=== PATIENT | male | born 1975 | race Caucasian/White ===

== ENCOUNTER 2018-01-28 22:26 | Emergency (ER) | payer OTHER ==
[2015-02-17 05:55] VITALS: BMI 36.5
[~2018-01-28 22:26] MED LIST: HYDROCODONE-APA1 TAB PO
[2018-01-28 22:43] LABS: APPEARANCE CLEAR (CLEAR); BILIRUBIN NEGATIVE (NEGATIVE); COLOR YELLOW (YELLOW); GLUCOSE NEGATIVE (NEGATIVE); KETONE NEGATIVE (NEGATIVE); NITRITE NEGATIVE (NEGATIVE); PROTEIN NEGATIVE (NEGATIVE); SPECIFIC GRAVITY 1.015 (1.005-1.020); UROBILINOGEN NORMAL (NORMAL)
[2018-01-29] MEDS ORDERED: FLAGYL500 MG PO (15:55)
[2018-01-29] MEDS ORDERED: CIPRO500 MG PO (15:55)
[2018-01-29] MEDS ORDERED: HYDROCODONE-APA1 TAB PO (15:55)
== END 2018-01-29 00:52 | disposition home or self-care (01) ==
LOC: D.ER 22:26
PROVIDERS: Family Medicine
DX: N20.1 Calculus of ureter (principal); N23 Unspecified renal colic; K57.92 Diverticulitis of intestine, part unspecified, without perforation or abscess without bleeding; F17.200 Nicotine dependence, unspecified, uncomplicated

== ENCOUNTER 2018-01-29 15:07 | Day surgery (SDC) | payer OTHER ==
[~2018-01-29] VITALS: Ht 170.2 cm; Wt 113.9 kg
--- NOTE | ~2018-01-29 | OP ---
PATIENT NAME: CHER MARQUIS MEDICAL RECORD: [id number] :77 LOCATION:[facility] ADMISSION DATE: SURGEON: ISHMAEL HAAS MD DATE OF OPERATION: 01/29/2018 SURGEON: Ishmael Haas MD ANESTHESIA: General anesthesia by Rony Moon CRNA PREOPERATIVE DIAGNOSIS: Left distal ureteral 7 mm stone. PROCEDURES: Cystoscopy, left retrograde pyelogram, left ureteroscopy and stone extraction, left ureteral stent insertion 6-Malian x 26 cm with string attached. FINDINGS: Radiodense left UVJ stone. Single ureteral orifices bilaterally. No bladder tumors. SPECIMENS: Left ureteral stone. ESTIMATED BLOOD LOSS: None. CLINICAL HISTORY: This is a 42-year-old male with a previous history of kidney stones. He was referred by the Emergency Room with left flank pain for the past 2 weeks. It became more intense last night and that is when he went to the Emergency Room. A CT scan shows bilateral punctate nonobstructive renal stones. There is left ureteral obstruction due to a 7 mm stone lodged in the left distal ureter. It is at the UV junction level. He was having such acute flank pain in my office with nausea and vomiting that I had him put on the add-on list today for surgery. HE IS ALLERGIC TO PENICILLIN and he was given Levaquin 500 mg IV continuity coordinator to the OR. DESCRIPTION OF PROCEDURE: The patient was given induction of general anesthesia. He was then placed into dorsal lithotomy position and prepped and draped. A 21-Malian cystoscope with 30-degree lens was used for visualization. The penile urethra was normal. Prostatic urethra is nonobstructive. Going into the bladder, single ureteral orifices were seen. The left ureteral orifice was inflamed from the presence of the stone. No bladder tumors were seen. On fluoroscopy, several radiodensities were seen in the pelvis. In order to determine which one was the stone, we performed a left retrograde pyelogram. The left ureteral orifice was intubated using a 5-Malian open-ended ureteral catheter. We then used diluted contrast for the retrograde pyelogram. This outlined the radiodensity of the ureteral stone. We then passed a Sensor wire past the stone up to the renal pelvis. The open-ended ureteral catheter was then removed, leaving the wire in place. Over the wire, inserted an 18-Malian x 4 cm ureteral dilation balloon. We dilated the ureteral orifice with only 5 atmospheres of pressure. I did not want to use excessive pressure in order to prevent forcing the stone through the ureteral wall. The pressure was applied for only a few seconds and then the balloon was deflated completely and the balloon was removed entirely. The wire remained in the ureter. The cystoscope lens was then removed leaving the sheath in place. The sheath will prevent any injury to the urethra and prostatic urethra from the ureteroscope. The rigid ureteroscope was then introduced and the stone was immediately seen. A 4-wire 0-tip basket was then placed around the stone and the stone was completely removed. The stone was sent to pathology as a dry specimen for chemical analysis. The wire was then backloaded onto the cystoscope and over the wire, OPERATIVE REPORT [id number] CHER MARQUIS we inserted a 6-Malian x 26 cm ureteral stent. Once the stent was in correct position, the wire was slowly withdrawn to allow the proximal end to coil within the renal pelvis. The wire was then completely removed. The distal end of the stent was pushed into the bladder using a pusher. The bladder was then emptied through the cystoscope sheath and then the cystoscope was entirely removed. The string on the distal end of the stent is maintained. It hangs out of the urethra. It was tied to itself in a knot and cut shorter. The patient was then awakened and brought to the recovery room. TRANSINT:[id number] Voice Confirmation ID: [id number] DOCUMENT ID: [id number] ISHMAEL HAAS MD at 1516 CC: [id number] DICTATION DATE: 01/29/182000 MACHINE CLOTHING WORKER: 01/30/18 [id number] [facility] 01/29/18 [facility] [address] [place] [address]
[2018-01-29 15:47] VITALS: BP 133/82; Ht 170.2 cm; Wt 113.9 kg
[2018-01-29] MEDS ORDERED: CIPRO500 MG PO (15:55)
[2018-01-29] MEDS ORDERED: HYDROCODONE-APA1 TAB PO (15:55)
[2018-01-29] MEDS ORDERED: FLAGYL500 MG PO (15:55)
[2018-01-29 20:29] VITALS: BP 129/78
[2018-02-09 17:12] LABS: CALCULI - CA OXALATE DIHYDRATE 25 % (()); CALCULI - CA OXALATE MONOHYDR 45 % (()); CALCULI - CALCIUM PHOSPHATE 30 % (()); CALCULI - COLOR Tan (()); CALCULI - SIZE 7x6x3 mm (()); CALCULI - WEIGHT 126.1 mg (())
== END 2018-01-29 22:00 | disposition home or self-care (01) ==
LOC: D.OPS 15:07 → D.MS 19:44 → D.OPS 22:00
PROVIDERS: Urology
DX: N20.1 Calculus of ureter (principal); Z87.442 Personal history of urinary calculi; Z88.0 Allergy status to penicillin; Z01.812 Encounter for preprocedural laboratory examination

== ENCOUNTER 2018-11-14 14:01 | Emergency (ER) | payer BC ==
[~2018-11-14] VITALS: Ht 170.2 cm; Wt 128.2 kg
[~2018-11-14 14:01] MED LIST changes: +CIPRO500 MG PO; +FLAGYL500 MG PO
[2018-11-14 14:56] LABS: BASOPHILS 0.6 % (0-2); EOSINOPHILS 0.9 % (0-7); HEMATOCRIT 43.4 % (42.0-54.0); HEMOGLOBIN 15.2 g/dL (13.5-17.5); IMMATURE GRANULOCYTES 0.2 % (0-5); LYMPHOCYTES 31.4 % (15-50); MCH 32.4 pg (26.0-34.0); MCV 92.5 fL (80.0-100.0); MEAN PLATELET VOLUME 11.1 fL (7.4-10.4); MONOCYTES 12.1 % (2-11); NEUTROPHILS 54.8 % (40-80); PLATELET COUNT 190 10x3/uL (130-400); RBC 4.69 10x6/uL (4.20-6.10); RDW 13.2 % (11.5-14.5); WBC 8.9 10x3/uL (4.8-10.8)
[2018-11-14 15:10] LABS: APTT 24.9 SECONDS (22.8-39.4); INR 1.03 (0.85-1.17)
[2018-11-14 15:11] LABS: D-DIMER-QUANTITATIVE < 0.27 ug/mLFEU (0.20-0.54)
[2018-11-14 15:16] LABS: ALBUMIN 3.6 g/dL (3.4-5.0); ALKALINE PHOSPHATASE 90 U/L (46-116); ALT (SGPT) 103 U/L (10-68); CALC OSMOLALITY 278 mosm/kg (275-300); CALCIUM 8.6 mg/dL (8.5-10.1); CARBON DIOXIDE 23.8 mmol/L (21.0-32.0); CHLORIDE - SERUM 104 mmol/L (98-107); CREATININE - SERUM 0.9 mg/dL (0.6-1.3); GLUCOSE 101 mg/dL (74-106); POTASSIUM - SERUM 3.6 mmol/L (3.5-5.1); PROTEIN - SERUM 7.2 g/dL (6.4-8.2); SODIUM 139 mmol/L (136-145); UREA NITROGEN 15 mg/dL (7-18); eGFR NON AFRICAN AMERICAN > 90 mL/min (90-120)
[2018-11-14 15:27] LABS: CKMB 1.8 U/L (0.0-3.6); CREATINE KINASE 181 UL (21-232); MAGNESIUM - SERUM 2.1 mg/dL (1.8-2.4); TROPONIN-I < 0.017 ng/mL (0.000-0.060)
[2018-11-14 15:47] VITALS: Ht 170.2 cm; Wt 128.2 kg
[2018-11-14 19:05] VITALS: BP 121/64
== END 2018-11-14 19:06 | disposition home or self-care (01) ==
LOC: D.ER 14:01
PROVIDERS: Family Medicine
DX: R07.9 Chest pain, unspecified (principal); I10 Essential (primary) hypertension; R42 Dizziness and giddiness; R06.02 Shortness of breath

== ENCOUNTER → 2020-07-06 13:29 | Outpatient (CLI) | payer OTHER ==
[2018-11-14 15:47] VITALS: BMI 44.3
== END | disposition home or self-care (01) ==
LOC: D.RAD 13:29
PROVIDERS: ATTEND Nurse Practitioner Family
DX: R05 Cough (principal)

== ENCOUNTER → 2020-07-09 07:20 | Outpatient (CLI) | payer OTHER ==
[2018-11-14 15:47] VITALS: BMI 44.3
== END | disposition home or self-care (01) ==
LOC: D.US 07:20
PROVIDERS: ATTEND Nurse Practitioner Family
DX: R94.5 Abnormal results of liver function studies (principal)